=== PATIENT | female | born 1945 | race Caucasian/White ===

== ENCOUNTER 2024-09-04 09:25 | Outpatient (AMB) | payer BC, SELFPAY ==
--- NOTE | 2024-09-04 09:58 | PD.RESCLINIC ---
Vital Signs 09/04/24 09:59 Height 1.6 m Height Method Stated Weight 54.885 kg Weight Measurement Method Standing Scale BMI 21.4 BP 192/73 H Blood Pressure Source Automatic Cuff Blood Pressure Location Left Upper Arm Position Sitting Respiration 18 Pulse 66 Pulse Source Monitor Temp 97.8 F Temp Source Temporal Artery Scan Pulse Oximetry (%) 98 Oxygen Delivery Method Room Air Allergies/Meds Allergies & Medications Allergies NUTS Allergy (Unknown, Uncoded 09/08/24 14:35) Medication Reconciliation estradiol 1 mg tablet (Estrace) 1 mg PO QDAY #0 tabs 01/13/14 [History] alprazolam 0.25 mg tablet (Xanax) 0.25 mg PO QDAY PRN claustrophobia #10 tabs 09/04/24 [Rx Confirmed 09/08/24] carvedilol 6.25 mg tablet (Coreg) 6.25 mg PO BID #60 tabs 09/04/24 [Rx Confirmed 09/08/24] MA Intake Visit Data Collection New Patient or Established: New Patient (never been to [facility]) Seen by Clinical Staff ONLY (RN/MA): No Pain Present Currently: Yes Pain Location: Shoulder Pain scale:: 4 PCP or OBGYN visit in last 3 months: Yes Smoking Status Smoking Status: Never smoker Immunization / Flu Flu Vaccine in the Last 12 Months: No Flu Vaccine Exclusion Criteria: Refused by Patient Past Medical History Social History SMOKING STATUS: Smoking status: Never smoker Patient Portal Questionaires Social History Tobacco History Smoking Status: Never smoker Review of Systems Report any current symptoms Only answer those that you have currently: Past Medical History Past Medical History Have you ever been diagnosed with any of the following: History of Present Illness HPI Narrative Patient is a 71-year-old female with past medical history of hypertension is coming in for an evaluation of left shoulder pain with associated numbness tingling and possible finger discoloration. Patient has noticed over some time that she began to experience worsening shoulder pain with those associated symptoms mentioned above. She says that she was in [facility] recently and had a cardiac cath which was normal. The reason she had a cardiac cath was she was experiencing also chest pain that had occurred suddenly. She is a patient of Dr. Gomez who manages her blood pressure and had said that her arteries are good, however needed further workup for the arteries of her extremities. She did say that her blood pressure has been running high lately, it was measured 160 in the manager facility office. She says her blood pressure is usually 120 systolic. She confirms about a 5 pound weight loss over the past month. She does endorse some fatigue as well. She denies having any chest pain, palpitations or shortness of breath at this time. She denies any trauma to her left shoulder or neck. She denies any family history of rheumatological disease. She denies having any syncope. She also says that she was going to travel via plane to get chiropractic work. She is also requesting some medicine for some history of claustrophobia with traveling. No other complaints at this time. Review of Systems Review of Systems Narrative Review of Systems: Constitutional: No fever, chills, fatigue, weakness, weight loss HEENT: No eye pain, vision loss, ear pain, hearing loss, dysphagia, Cardiovascular: No chest pain, palpitations, edema, pain with walking Respiratory: No cough, shortness of breath, wheezing GI: No NVD, abdominal pain, constipation, blood in stool, loss of appetite, heartburn Extremities: No presence of pitting edema MSK: Positive right shoulder pain, no back pain, joint pain, joint swelling Neuro: No dizziness, numbness, positive weakness, no headaches, seizures, tremors Psych: No anxiety, depression Objective/Exam Narrative Physical exam: General: AAOx3, NAD, wearing glasses HEENT: Moist mucous membranes, conjunctiva clear, EOMI, PERRLA, Cardiovascular: S1, S2, radial pulses +2 bilat, RRR Pulmonary: CTAB bilat no cough, no wheezing GI: No tenderness to light or deep palpitation, no guarding, rigidity, rebound tenderness or distension Extremities: No presence of trace or pitting edema in lower extremities bilaterally, dorsalis pedis pulses +2 bilaterally, cap refill +2, possible some discoloration when lifting shoulder to flexed position, negative Michael test with left side, negative Wallenberg test, pulses seem to be equal Neuro: AAOx3, no focal motor or sensory deficits in the UE or LE bilat Psych: Good judgement, thought and behavior. Cooperative Assessment & Plan Diagnosis / Problem List (1) Left shoulder pain: Status: Acute Assessment & Plan: DDx: Thoracic outlet syndrome, subclavian steal syndrome, neurogenic claudication, vertebral artery insufficiency, arterial claudication Sees Dr. Gomez Blood pressure measured 195/95 in both R and L arm manually, less likely subclavian steal syndrome There was a concern for arterial claudication, however blood pressure seems to be normal in both arms, pulses seem to be equal There is a concern for neurogenic claudication, will need to further workup because patient has associated numbness and tingling There could also be a rheumatologic component, family history of rheumatologic disease has been denied however will still workup Patient denies having a history of anxiety Blood pressure does not seem to be controlled and patient is experiencing any time, will adjust blood pressure medicine Plan: Ultrasound arterial duplex of her upper extremities bilaterall MRI of the cervical spine SUNNY (2) Hypertension: Status: Acute Assessment & Plan: Sees Dr. Gomez Blood pressure measured 195/95 in both R and L arm manually Spoke with Dr. Hernadez says okay to start Coreg at this time Plan: Discontinue metoprolol Given Coreg 6.25 twice daily for metoprolol 50 mg XL equivalent Follow-up with Dr. Gomez ER precautions given if patient becomes symptomatic or blood pressure worsens (3) Claustrophobia: Status: Acute Assessment & Plan: Patient says she wants to travel for chiropractic work It was informed to the patient for patient to avoid getting any manipulations including high velocity techniques in the setting of possible neurogenic claudication She was given permission to continue with soft tissue work but highly discouraged patient to do any cervical manipulations or high velocity techniques until further workup Informed the patient to try Xanax before traveling to see how her body reacts Patient also has claustrophobia with MRI and was also informed to take that medicine before getting imaging done Patient did says she is sensitive to anesthesia and other medicines Plan: Dispensed 10 tablets of Xanax 0.25 mg, max dose 0.25 mg 1 day Orders: Orders MR cervical spine wo con 09/04/24 M48.062 - Spinal stenosis, lumbar region with neurogenic claudication SUNNY IFA Screen w/refl, IFA* 09/04/24 M48.062 - Spinal stenosis, lumbar region with neurogenic claudication US arterial duplex UE BI 09/04/24 M48.00 - Spinal stenosis, site unspecified Additional Assessment Internal Medicine Attending Note: Patient examined and interviewed. Case discussed with and agree with note and management plan of Resident Physician as per Resident's Note above. Issues of concern for present visit are as follows: New patient to clinic. Complaint of left shoulder pain with numbness, tingling, finger discoloration in left upper extremity. Pain in the shoulder is more posterior, in the region of the lower portion of the trapezius underneath the scapula in the region of the rhomboid muscles. Radial pulses symmetric bilaterally. Michael's test is negative bilaterally. Left fourth and fifth digits are cooler than others. No anisa radicular pain. Denies chest pain. Blood pressure has been running higher. No anisa muscle wasting noted comparing left and right upper extremities. No edema in left upper extremity. No history of trauma or prior issue with rib or clavicle on left side. Question if symptoms are circulatory versus neurologic in nature. Pain in the shoulder suggest a possible C7-C8 source which would also correlate with finger symptoms of numbness and tingling. Symmetric radial pulses would suggest that there is not compression or compromise of arterial flow. We will check an arterial duplex of the upper extremities bilaterally to compare both. We will check an MRI of the cervical spine. We will do a limited rheumatologic workup (consider Raynaud's). Change antihypertensive to carvedilol 6.25 twice daily and titrate for better blood pressure control. Patient planning to travel soon, reports anxiety with flights. We will give a very low-dose of Xanax to be used as needed. Advised patient to try it at home in a controlled setting first before taking it prior to the flight. Patient may also use this 1 hour in advance of MRI for claustrophobia. Mike Hughes MD Advanced Care Planning Advance care planning discussed with:: patient Physician Billing New Patient New Patient: E/M Level 4-CPT 55187 Office Procedures [facility] Level of Care Nursing/Assessment Patient Status: Established Patient Nursing Assessment/Reassessment: Medication Reconciliation, Update PMH in EMR and Vital Signs Coordination of Care: Complex Care/Chronic Disease 5 or more, Consent,records obtained, informed consent, Education Simp Pt/Fam, Lab and Imaging orders and Staff clarify orders Established Patient Charge Established Patient Point Assignment: 110 Established Patient Point Charge: EP Level 3 (80-115)
[2024-09-04 09:59] VITALS: BP 192/73; PULSE 66; RESP 18; TEMP 36.6; O2SAT 98; BMI 21.4
== END 2024-09-04 11:27 | disposition home or self-care (01) ==
LOC: HODAHC 09:25
PROVIDERS: PCP Nurse Practitioner Family; Referring Provider Nurse Practitioner Family
DX: M25.512 Pain in left shoulder (principal); R20.0 Anesthesia of skin; R20.2 Paresthesia of skin; I10 Essential (primary) hypertension; F40.240 Claustrophobia
CPT/HCPCS: 99213; G0463

== ENCOUNTER 2024-11-06 10:32 | Outpatient (AMB) | payer BC, SELFPAY ==
[2024-11-06 10:53] VITALS: BP 188/81; PULSE 79; RESP 16; TEMP 36.8; O2SAT 97; BMI 21.0
--- NOTE | 2024-11-06 10:53 | ACNOTE_ITS ---
Vital Signs 11/06/24 10:53 Height 1.6 m Height Method Stated Weight 53.977 kg Weight Measurement Method Standing Scale BMI 21.0 BP 188/81 H Blood Pressure Source Automatic Cuff Blood Pressure Location Left Upper Arm Position Sitting Respiration 16 Pulse 79 Pulse Source Monitor Temp 98.2 F Temp Source Temporal Artery Scan Pulse Oximetry (%) 97 Oxygen Delivery Method Room Air Allergies/Meds Allergies & Medications Allergies NUTS Allergy (Unknown, Uncoded 11/06/24 10:54) Medication Reconciliation estradiol 1 mg tablet (Estrace) 1 mg PO QDAY #0 tabs 01/13/14 [History Confirmed 11/06/24] alprazolam 0.25 mg tablet (Xanax) 0.25 mg PO QDAY PRN claustrophobia #10 tabs 09/04/24 [Rx Confirmed 11/06/24] carvedilol 6.25 mg tablet (Coreg) 6.25 mg PO BID #60 tabs 09/04/24 [Rx Confirmed 11/06/24] MA Intake Visit Data Collection New Patient or Established: Established Patient (seen at [facility] within 3 years) Seen by Clinical Staff ONLY (RN/MA): Yes Pain Present Currently: No Pain scale:: 0 Pain Scale Used: Chery-C[place]/Numerical Farmer And Grazier Required: No PCP or OBGYN visit in last 3 months: No Hx Now: No Do You Feel Safe at Home: Yes Authorities Contacted: N/A Smoking Status Smoking Status: Never smoker Immunization / Flu Flu Vaccine in the Last 12 Months: No Flu Vaccine Exclusion Criteria: No Exclusion Criteria Past Medical History Social History SMOKING STATUS: Smoking status: Never smoker Patient Portal Questionaires Social History Tobacco History Smoking Status: Never smoker Domestic Abuse History Do You Feel Safe at Home: Yes Review of Systems Report any current symptoms Only answer those that you have currently: Past Medical History Past Medical History Have you ever been diagnosed with any of the following: Assessment & Plan Additional Assessment Attending Note: Patient left prior to being seen by physician as she stated that she had a family emergency. Mike Hughes MD Advanced Care Planning Advance care planning discussed with:: other (none as patient left prior to being seen by physician due to stated family emergency) Office Procedures [facility] Level of Care Nursing/Assessment Patient Status: Established Patient Nursing Assessment/Reassessment: Medication Reconciliation, Update PMH in EMR and Vital Signs Coordination of Care: Complex Care and Chronic Disease 1-5, Consent,records obta ined, informed consent and Staff clarify orders Established Patient Charge Established Patient Point Assignment: 70 Established Patient Point Charge: EP Level 2 (40-75)
== END 2024-11-06 11:16 | disposition home or self-care (01) ==
PROVIDERS: PCP Student in an Organized Health Care Education/Training Program; Referring Provider Student in an Organized Health Care Education/Training Program; Supervising Provider Internal Medicine; Visit Provider Student in an Organized Health Care Education/Training Program
DX: Z53.21 Procedure and treatment not carried out due to patient leaving prior to being seen by health care provider (principal)
CPT/HCPCS: 99212; 99213; G0463

== ENCOUNTER 2024-12-05 13:56 | Outpatient (AMB) | payer BC, SELFPAY ==
[2024-12-05 14:13] VITALS: BP 193/79; PULSE 78; RESP 18; TEMP 36.8; O2SAT 97; BMI 21.2
--- NOTE | 2024-12-05 14:13 | ACNOTE_ITS ---
Vital Signs 12/05/24 14:13 Height 1.6 m Height Method Stated Weight 54.488 kg Weight Measurement Method Standing Scale BMI 21.2 BP 193/79 H Blood Pressure Source Automatic Cuff Blood Pressure Location Right Upper Arm Position Sitting Respiration 18 Pulse 78 Pulse Source Monitor Temp 98.2 F Temp Source Temporal Artery Scan Pulse Oximetry (%) 97 Oxygen Delivery Method Room Air Allergies/Meds Allergies & Medications Allergies NUTS Allergy (Unknown, Uncoded 12/05/24 14:14) Medication Reconciliation estradiol 1 mg tablet (Estrace) 1 mg PO QDAY #0 tabs 01/13/14 [History Confirmed 12/05/24] alprazolam 0.25 mg tablet (Xanax) 0.25 mg PO QDAY PRN claustrophobia #10 tabs 09/04/24 [Rx Confirmed 12/05/24] carvedilol 6.25 mg tablet (Coreg) 6.25 mg PO BID #60 tabs 09/04/24 [Rx Confirmed 12/05/24] gabapentin 100 mg capsule 100 mg PO BID pain #14 caps 12/05/24 [Rx] hydrocortisone 1 % topical cream 1 applic topical QID PRN itching #28.4 grams 12/05/24 [Rx] valacyclovir 1 gram tablet 1,000 mg PO Q8H shingles 7 days #21 tabs 12/05/24 [Rx] MA Intake Visit Data Collection New Patient or Established: Established Patient (seen at [facility] within 3 years) Seen by Clinical Staff ONLY (RN/MA): No Pain Present Currently: No Pain scale:: 0 Pain Scale Used: Chery-[place]/Numerical Retail Pharmacy Technician Required: No PCP or OBGYN visit in last 3 months: No Hx Now: No Do You Feel Safe at Home: Yes Authorities Contacted: N/A Smoking Status Smoking Status: Never smoker Immunization / Flu Flu Vaccine in the Last 12 Months: No Flu Vaccine Exclusion Criteria: No Exclusion Criteria Past Medical History Social History SMOKING STATUS: Smoking status: Never smoker Patient Portal Questionaires Social History Tobacco History Smoking Status: Never smoker Domestic Abuse History Do You Feel Safe at Home: Yes Review of Systems Report any current symptoms Only answer those that you have currently: Past Medical History Past Medical History Have you ever been diagnosed with any of the following: History of Present Illness HPI Narrative Patient is a 71-year-old female with past medical history of hypertension is coming in for an evaluation of left shoulder pain with associated numbness tingling and possible finger discoloration. Patient has noticed over some time that she began to experience worsening shoulder pain with those associated symptoms mentioned above. She says that she was in [facility] recently and had a cardiac cath which was normal. The reason she had a cardiac cath was she was experiencing also chest pain that had occurred suddenly. She is a patient of Dr. Gomez who manages her blood pressure and had said that her arteries are good, however needed further workup for the arteries of her extremities. She did say that her blood pressure has been running high lately, it was measured 160 in the [employer] administrator office. She says her blood pressure is usually 120 systolic. She confirms about a 5 pound weight loss over the past month. She does endorse some fatigue as well. She denies having any chest pain, palpitations or shortness of breath at this time. She denies any trauma to her left shoulder or neck. She denies any family history of rheumatological disease. She denies having any syncope. She also says that she was going to travel via plane to get chiropractic work. She is also requesting some medicine for some history of claustrophobia with traveling. No other complaints at this time. 12/05 : Patient presented for follow-up visit. She continues to have loss of appetite, > 8 pound weight loss in 2 months, night sweats and mild discomfort due to the left thyroid gland nodule. Patient also complains of developing a vesicular rash behind her ear 1 week ago. She has had shingles in the past on the right side of her abdomen which was treated with antiviral therapy. She refuses Shingrix vaccination at this time. Daughter was present at bedside, and showed a picture of the vesicles from 1 week ago which have now resolved to a dry erythematous and excoriated lesion behind the ear. Patient endorses severe pain 9/10 in her mastoid region and left temporal region of the head. As per daughter at bedside, patient lives alone and has not been maintaining her lawn) less around the house due to significant fatigue. As per daughter patient has been coughing yellow-green mucus intermittently for the last 8 weeks, she has also noted loss of energy and appetite, with some depressive symptoms over the last 2-3 months. Blood pressure was noted to be 193 systolic, but patient does have notable history of whitecoat hypertension. She was given lab work from for CBC, CMP, lipid panel, TSH and free T4, CEA and thyroglobulin. Thyroid ultrasound and CT chest ordered for further evaluation. Will follow-up with iodine scan and oncology referral as needed. Review of Systems Review of Systems Narrative Review of Systems: GENERAL: Denies fevers/chills, endorses night time diaphoresis. Weight loss >8lbs in 09/17 HEENT: Denies headache or visual/hearing changes. Denies nasal discharge. NEURO: Denies unusual weakness or difficulty speaking. CARDIO: Denies chest pain, palpitations. PULM: Denies SOB, cough, wheezing. GI: Denies abdominal pain, no N/V, no C/D. Reports having BMs URO: Denies burning/itching/pain/urinary changes. 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 MSK/EXT/SKIN: vesicular rash behind her ear, severe pain 9/10 in her mastoid re gion and left temporal region of the head. PSYCH: Cooperative, pleasant mood & affect. The rest of the review of systems is otherwise negative. Objective/Exam Narrative Physical exam: Constitutional Alert, oriented x3 and comfortable HEENT Vision grossly intact. Patent nares. 1.5-2 cm left thyroid nodule. Trachea midline. Diffuse tenderness in the right temporal head region. Respiratory Chest normal on inspection and diffuse congestion on auscultation. Cardiovascular S1 and S2 audible, RRR. No murmurs or carotid bruit. No gross JVD. Abdominal Soft and non tender to palpation in all quadrants. BS + Genitourinary No bladder tenderness, no flank pain. Normal to palpation. Musculoskeletal Extremities tone within normal limits. No LE edema. Neurological CN II - XII grossly intact. Extremity motor and sensation grossly intact. Skin Dry, crusted erythematous lesion behind the right ear lobe. Previously vesicular, excruciatingly tender. Psychiatric Patient has a good affect, is cooperative. Assessment & Plan Diagnosis / Problem List (1) Shingles: Status: Acute Qualifiers: Herpes zoster complications: without complications Qualified Code(s): B02.9 - Zoster without complications Assessment & Plan: - Complains of developing a vesicular rash behind her ear 1 week ago. - She has had shingles in the past on the right side of her abdomen which was treated with antiviral therapy. - She refuses Shingrix vaccination at this time. - Daughter was present at bedside, and showed a picture of the vesicles from 1 week ago which have now resolved to a dry erythematous and excoriated lesion behind the ear. - Patient endorses severe pain 9/10 in her mastoid region and left temporal region of the head. Plan: - Ordered CBC, CMP, lipid panel, TSH and free T4, CEA and thyroglobulin. - Valacyclovir 1g TID x 7d - Gabapentin 100mg TID PRN for pain - Hydrocortisone ointment (2) Thyroid nodule: Status: Acute Assessment & Plan: - Continues to have loss of appetite, > 8 pound weight loss in 2 months, night sweats and mild discomfort due to the left thyroid gland nodule. - >8 pound weight loss in 2 months, night sweats and mild discomfort due to the left thyroid gland nodule. Plan: - lab work from for CBC, CMP, lipid panel, TSH and free T4, CEA and thyroglobulin. - Thyroid ultrasound and CT chest ordered for further evaluation. - Will follow-up with iodine scan and oncology referral as needed. (3) White coat syndrome with hypertension: Status: Acute Assessment & Plan: Blood pressure was noted to be 193 systolic, but patient does have notable history of whitecoat hypertension. Plan: - Asked to keep a BP record at home - Will change medication once Renal Function reviewed on lab work (4) Hypercholesteremia: Status: Acute Assessment & Plan: Hx of high cholesterol Plan: - Lipid panel ordered for further eval Plan - Follow-up scheduled in 2 weeks from now. - Requested to return the blood work: CBC, CMP, lipid panel, TSH and free T4, CEA and thyroglobulin - Requested imaging studies:Thyroid ultrasound and CT chest w/o con Orders: Orders CT chest wo con 2 Weeks US thyroid 2 Weeks E04.1 - Nontoxic single thyroid nodule Thyroglobulin Panel* 2 Weeks E04.1 - Nontoxic single thyroid nodule CBC 2 Weeks I10 - Essential (primary) hypertension Comprehensive Metabolic Panel 2 Weeks E04.1 - Nontoxic single thyroid nodule Thyroid Stimulating Hormone 2 Weeks E04.1 - Nontoxic single thyroid nodule Carcinoembryonic Antigen 2 Weeks E04.1 - Nontoxic single thyroid nodule Free T4 (Free Thyroxine) 2 Weeks Lipid Panel 2 Weeks E78.00 - Pure hypercholesterolemia, unspecified Additional Assessment Internal Medicine Attending Note: Patient examined and interviewed. Case discussed with and agree with note and management plan of Resident Physician as per Resident's Note above. Issues of concern for present visit are as follows: Follow-up visit. Rash on posterior right ear as well as pain over scalp consistent with recurrence of varicella-zoster. Ear canal is clear. Symptoms for greater than 48 hours, but we will cover with valacyclovir. Workup in process for thyroid nodule. Blood pressure elevated in office, needs outpatient readings. Await labs, follow-up in 2 weeks. Mike Hughes MD Advanced Care Planning Advance care planning discussed with:: patient and child Physician Billing Established Patient Established Patient: E/M Level 4-CPT 18401 Office Procedures [facility] Level of Care Nursing/Assessment Patient Status: Established Patient Nursing Assessment/Reassessment: Medication Reconciliation, Update PMH in EMR and Vital Signs Coordination of Care: Complex Care and Chronic Disease 1-5, Consent,records obtained, informed consent, Education Simp Pt/Fam and Staff clarify orders Established Patient Charge Established Patient Point Assignment: 85 Established Patient Point Charge: EP Level 3 (80-115)
== END 2024-12-05 15:21 | disposition home or self-care (01) ==
LOC: HODAHC 13:56
PROVIDERS: Supervising Provider Internal Medicine; Visit Provider Student in an Organized Health Care Education/Training Program
DX: B02.9 Zoster without complications (principal); E04.1 Nontoxic single thyroid nodule; I10 Essential (primary) hypertension; E78.00 Pure hypercholesterolemia, unspecified; R63.0 Anorexia; Z68.21 Body mass index [BMI] 21.0-21.9, adult
CPT/HCPCS: 99213; G0463

== ENCOUNTER → 2024-12-12 | Outpatient (CLI) | payer BC, SELFPAY ==
[2024-12-12 10:12] LABS: Carcinoembryonic Antigen 4.9 ng/mL (0.0-5.0)
[2024-12-12 10:19] LABS: Cardiac Risk Estimate 5.2 RATIO (3.7-5.6); Cholesterol 309 mg/dL (132-200); HDL Cholesterol 59 mg/dL (40-60); LDL Cholesterol,Calculated 218 mg/dL (0-130); Triglycerides 160 mg/dL (30-150)
[2024-12-14 15:34] LABS: Thyroglobulin Antibodies <1 IU/mL (< OR = 1)
[2024-12-15 07:14] LABS: Thyroglobulin 32.9 ng/mL
== END | disposition home or self-care (01) ==
PROVIDERS: PCP Student in an Organized Health Care Education/Training Program; Referring Provider Student in an Organized Health Care Education/Training Program; Visit Provider Student in an Organized Health Care Education/Training Program
DX: E04.1 Nontoxic single thyroid nodule (principal); E78.00 Pure hypercholesterolemia, unspecified
CPT/HCPCS: 36415; 80061; 82378; 84432; 86800

== ENCOUNTER 2024-12-19 13:30 | Outpatient (AMB) | payer BC, SELFPAY ==
[2024-12-19 13:53] VITALS: BP 182/78; PULSE 85; RESP 18; TEMP 36.6; O2SAT 98; BMI 20.7
--- NOTE | 2024-12-19 13:53 | PD.RESCLINIC ---
Vital Signs 12/19/24 13:53 Height 1.6 m Height Method Stated Weight 53.127 kg Weight Measurement Method Standing Scale BMI 20.7 BP 182/78 H Blood Pressure Source Automatic Cuff Blood Pressure Location Right Upper Arm Position Sitting Respiration 18 Pulse 85 Pulse Source Monitor Temp 97.8 F Temp Source Temporal Artery Scan Pulse Oximetry (%) 98 Oxygen Delivery Method Room Air Allergies/Meds Allergies & Medications Allergies NUTS Allergy (Unknown, Uncoded 12/24/24 08:20) Medication Reconciliation estradiol 1 mg tablet (Estrace) 1 mg PO QDAY #0 tabs 01/13/14 [History Confirmed 12/24/24] alprazolam 0.25 mg tablet (Xanax) 0.25 mg PO QDAY PRN claustrophobia #10 tabs 09/04/24 [Rx Confirmed 12/24/24] carvedilol 6.25 mg tablet (Coreg) 6.25 mg PO BID #60 tabs 09/04/24 [Rx Confirmed 12/24/24] gabapentin 100 mg capsule 100 mg PO BID pain #14 caps 12/05/24 [Rx Confirmed 12/24/24] hydrocortisone 1 % topical cream 1 applic topical QID PRN itching #28.4 grams 12/05/24 [Rx Confirmed 12/24/24] diclofenac sodium 1 % topical gel (Arthritis Pain (diclofenac)) 2 g topical QID #50 grams 12/19/24 [Rx Confirmed 12/24/24] rosuvastatin 20 mg tablet 20 mg PO QDAY 1 month #30 tabs 12/19/24 [Rx Confirmed 12/24/24] valacyclovir 1 gram tablet 1,000 mg PO BID #30 tabs 12/19/24 [Rx Confirmed 12/24/24] MA Intake Visit Data Collection New Patient or Established: Established Patient (seen at [facility] within 3 years) Seen by Clinical Staff ONLY (RN/MA): No Pain Present Currently: No Pain scale:: 0 Pain Scale Used: CheryTammi/Numerical Office Workforce Planner Required: No PCP or OBGYN visit in last 3 months: Yes Hx Now: No Do You Feel Safe at Home: Yes Authorities Contacted: N/A Smoking Status Smoking Status: Never smoker Immunization / Flu Flu Vaccine in the Last 12 Months: No Flu Vaccine Exclusion Criteria: Refused by Patient Past Medical History Social History SMOKING STATUS: Smoking status: Never smoker Patient Portal Questionaires Social History Tobacco History Smoking Status: Never smoker Domestic Abuse History Do You Feel Safe at Home: Yes Review of Systems Report any current symptoms Only answer those that you have currently: Past Medical History Past Medical History Have you ever been diagnosed with any of the following: History of Present Illness HPI Narrative Patient is a 71-year-old female with past medical history of hypertension is coming in for an evaluation of left shoulder pain with associated numbness tingling and possible finger discoloration. Patient has noticed over some time that she began to experience worsening shoulder pain with those associated symptoms mentioned above. She says that she was in [facility] recently and had a cardiac cath which was normal. The reason she had a cardiac cath was she was experiencing also chest pain that had occurred suddenly. She is a patient of Dr. Gomez who manages her blood pressure and had said that her arteries are good, however needed further workup for the arteries of her extremities. She did say that her blood pressure has been running high lately, it was measured 160 in the nutrition faculty member office. She says her blood pressure is usually 120 systolic. She confirms about a 5 pound weight loss over the past month. She does endorse some fatigue as well. She denies having any chest pain, palpitations or shortness of breath at this time. She denies any trauma to her left shoulder or neck. She denies any family history of rheumatological disease. She denies having any syncope. She also says that she was going to travel via plane to get chiropractic work. She is also requesting some medicine for some history of claustrophobia with traveling. No other complaints at this time. 12/05/2024 : Patient presented for follow-up visit. She continues to have loss of appetite, > 8 pound weight loss in 2 months, night sweats and mild discomfort due to the left thyroid gland nodule. Patient also complains of developing a vesicular rash behind her ear 1 week ago. She has had shingles in the past on the right side of her abdomen which was treated with antiviral therapy. She refuses Shingrix vaccination at this time. Daughter was present at bedside, and showed a picture of the vesicles from 1 week ago which have now resolved to a dry erythematous and excoriated lesion behind the ear. Patient endorses severe pain 9/10 in her mastoid region and left temporal region of the head. As per daughter at bedside, patient lives alone and has not been maintaining her lawn) less around the house due to significant fatigue. As per daughter patient has been coughing yellow-green mucus intermittently for the last 8 weeks, she has also noted loss of energy and appetite, with some depressive symptoms over the last 2-3 months. Blood pressure was noted to be 193 systolic, but patient does have notable history of whitecoat hypertension. She was given lab work from for CBC, CMP, lipid panel, TSH and free T4, CEA and thyroglobulin. Thyroid ultrasound and CT chest ordered for further evaluation. Will follow-up with iodine scan and oncology referral as needed. 12/19/2024 : Patient presented for follow up. On labs elevated cholesterol noted, will start patient on Rosuvastatin 20mg HS. Other lab findings fairly within normal limits. Patient continues to have elevated blood pressure in clinic, endorses a 2 whitecoat hypertension. Patient was unable to get CBC on her last lab work, will request a new sample for next visit in 2 weeks. She is scheduled for a thyroid ultrasound in the next week, and will call make an appointment for CT chest. She did request faxed already. TSH and free T4 within normal limits, pending ultrasound results for cold nodule workup. Counseled on possible need for radioactive uptake scan. She also complains of new right-sided chest wall pain, likely due to sleeping with improper posture. Will order diclofenac ointment for the same. Patient also requested extra valacyclovir tablets for recurrence of shingles. Next follow-up appointment in 2 weeks on January 02. Review of Systems Review of Systems Narrative Review of Systems: GENERAL: Denies fevers/chills, diaphoresis. HEENT: Denies headache or visual/hearing changes. Denies nasal discharge. NEURO: Denies unusual weakness or difficulty speaking. CARDIO: Denies chest pain, palpitations. PULM: Denies SOB, cough, wheezing. GI: Denies abdominal pain, no N/V, no C/D. Reports having BMs URO: Denies burning/itching/pain/urinary changes. 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 MSK/EXT/SKIN: Denies skeletal/muscle pain, changes in upper or lower extremities, itchiness, superficial skin chnages. PSYCH: Cooperative, pleasant mood & affect. The rest of the review of systems is otherwise negative. Objective/Exam Narrative Physical exam: Constitutional Alert, oriented x3 and comfortable HEENT Vision grossly intact. Patent nares. Trachea midline. Respiratory Chest normal on inspection and clear to auscultation bilaterally. Cardiovascular S1 and S2 audible, RRR. No murmurs or carotid bruit. No gross JVD. RT sided chest wall pain. Abdominal Soft and non tender to palpation in all quadrants. BS + Genitourinary No bladder tenderness, no flank pain. Normal to palpation. Musculoskeletal Extremities tone within normal limits. No LE edema. Neurological CN II - XII grossly intact. Extremity motor and sensation grossly intact. Skin Warm, dry and intact. No apparent lesions. Psychiatric Patient has a good affect, is cooperative. Assessment & Plan Diagnosis / Problem List (1) Thyroid nodule: Status: Acute Assessment & Plan: - Continues to have loss of appetite, > 8 pound weight loss in 2 months, night sweats and mild discomfort due to the left thyroid gland nodule. - >8 pound weight loss in 2 months, night sweats and mild discomfort due to the left thyroid gland nodule. 12/19 : TSH, free T4, CEA and thyroglobulin levels within normal limits Plan: - Ordered new request for CBC - Pending thyroid ultrasound and CT chest ordered for further evaluation. - Will follow-up with iodine scan and oncology referral as needed. (2) Hypercholesteremia: Status: Acute Assessment & Plan: Hx of high cholesterol 12/19 ; Lipid panel shows hypercholesterolemia Plan: Started on rosuvastatin 20 mg at bedtime (3) White coat syndrome with hypertension: Status: Acute Assessment & Plan: Blood pressure was noted to be 193 systolic, but patient does have notable history of whitecoat hypertension. 12/19 : Blood pressure on this visit 182/78 Home record within normal limits Plan: - Encouraged to continue keeping blood pressure record at home - Will trauma counsellor next visit on CORA/ARB addition for adequate control (4) Right-sided chest wall pain: Status: Acute Assessment & Plan: She also complains of new right-sided chest wall pain, likely due to sleeping with improper posture. Plan: - order diclofenac ointment - Take gabapentin which is prescribed at for shingles on last visit, to be taken in addition as needed for severe pain Plan - Follow-up scheduled in 2 weeks from now. - Requested to return the blood work: CBC - Requested imaging studies:Thyroid ultrasound and CT chest w/o con Orders: Orders CBC 2 Weeks I10 - Essential (primary) hypertension Additional Assessment Mike Hughes MD Advanced Care Planning Advance care planning discussed with:: patient and child Office Procedures [facility] Level of Care Nursing/Assessment Patient Status: Established Patient Nursing Assessment/Reassessment: Medication Reconciliation, Update PMH in EMR and Vital Signs Coordination of Care: Complex Care and Chronic Disease 1-5, Consent,records obtained, informed consent, Education Simp Pt/Fam, Results/Orders obtained and Staff clarify orders Established Patient Charge Established Patient Point Assignment: 90 Established Patient Point Charge: EP Level 3 (80-115)
== END 2024-12-19 14:52 | disposition home or self-care (01) ==
LOC: HODAHC 13:30
PROVIDERS: Supervising Provider Student in an Organized Health Care Education/Training Program; Visit Provider Student in an Organized Health Care Education/Training Program
DX: E78.00 Pure hypercholesterolemia, unspecified (principal); I10 Essential (primary) hypertension; R07.89 Other chest pain; E04.1 Nontoxic single thyroid nodule
CPT/HCPCS: 99213; G0463

== ENCOUNTER → 2024-12-24 | Outpatient (CLI) | payer BC, SELFPAY ==
--- NOTE | 2024-12-24 15:00 | XR_ITS ---
Examination: Thyroid sonography complete TECHNIQUE: Grayscale sonographic images thyroid lobes Exam date and time: December 24, 2024 1515 hours Diagnosis nontoxic single thyroid nodule, patient states lump on the left side of the neck note is beginning 3 weeks ago. FINDINGS: Right thyroid 4.1 cm Midpole nodule 7 x 8 mm midpole cyst 5 x 4 mm Lower pole nodule 19 x 12 mm Left thyroid 5.2 cm Upper pole cyst with internal echoes 21 x 18 mm Midpole nodule 13 x 9 mm Midpole cyst 9 x 6 mm Lower pole nodule 4 x 5 mm Multiple bilateral smaller nodules IMPRESSION: Multiple thyroid nodules as above, consider ultrasound-guided fine-needle aspiration of the nodules in the lower pole right thyroid and mid pole left thyroid
== END | disposition home or self-care (01) ==
PROVIDERS: Referring Provider Student in an Organized Health Care Education/Training Program; Visit Provider Student in an Organized Health Care Education/Training Program
DX: E04.2 Nontoxic multinodular goiter (principal)
CPT/HCPCS: 76536

== ENCOUNTER 2025-01-02 15:00 | Outpatient (AMB) | payer BC, SELFPAY ==
--- NOTE | 2025-01-02 15:33 | ACNOTE_ITS ---
Vital Signs 01/02/25 15:34 Height 1.6 m Height Method Stated Weight 52.673 kg Weight Measurement Method Standing Scale BMI 20.5 BP 166/74 H Blood Pressure Source Automatic Cuff Blood Pressure Location Right Upper Arm Position Sitting Respiration 17 Pulse 91 Pulse Source Monitor Temp 98.0 F Temp Source Temporal Artery Scan Pulse Oximetry (%) 98 Oxygen Delivery Method Room Air Allergies/Meds Allergies & Medications Allergies NUTS Allergy (Unknown, Uncoded 01/02/25 15:35) Medication Reconciliation estradiol 1 mg tablet (Estrace) 1 mg PO QDAY #0 tabs 01/13/14 [History Confirmed 01/02/25] alprazolam 0.25 mg tablet (Xanax) 0.25 mg PO QDAY PRN claustrophobia #10 tabs 09/04/24 [Rx Confirmed 01/02/25] carvedilol 6.25 mg tablet (Coreg) 6.25 mg PO BID #60 tabs 09/04/24 [Rx Confirmed 01/02/25] gabapentin 100 mg capsule 100 mg PO BID pain #14 caps 12/05/24 [Rx Confirmed 01/02/25] hydrocortisone 1 % topical cream 1 applic topical QID PRN itching #28.4 grams 12/05/24 [Rx Confirmed 01/02/25] diclofenac sodium 1 % topical gel (Arthritis Pain (diclofenac)) 2 g topical QID #50 grams 12/19/24 [Rx Confirmed 01/02/25] rosuvastatin 20 mg tablet 20 mg PO QDAY 1 month #30 tabs 12/19/24 [Rx Confirmed 01/02/25] valacyclovir 1 gram tablet 1,000 mg PO BID #30 tabs 12/19/24 [Rx Confirmed 01/02/25] MA Intake Visit Data Collection New Patient or Established: Established Patient (seen at [facility] within 3 years) Seen by Clinical Staff ONLY (RN/MA): No Pain Present Currently: Yes Pain Location: Throat Pain scale:: 7 Pain Scale Used: CheryTammi/Numerical Digital Product Specialist Required: No PCP or OBGYN visit in last 3 months: Yes Date of Last PCP or OBGYN visit: 12/19/24 Do You Feel Safe at Home: Yes Authorities Contacted: N/A Smoking Status Smoking Status: Never smoker Immunization / Flu Flu Vaccine in the Last 12 Months: Yes Flu Vaccine Exclusion Criteria: Already Received Past Medical History Social History SMOKING STATUS: Smoking status: Never smoker Patient Portal Questionaires PHQ-9 PHQ-2 Over the last 2 weeks, how often have you been bothered by any of the following problems? 1. Little interest or pleasure in doing things: not at all 2. Feeling down, depressed, or hopeless: not at all Total score: 0 PHQ-9 3. Trouble falling or staying asleep, or sleeping too much: Not at all 4. Feeling tired or having little energy: Not at all 5. Poor appetite or overeating: Not at all 6. Feeling bad about yourself - or that you are a failure or have let yourself or your family down: Not at all 7. Trouble concentrating on things, such as reading the newspaper or watching television: Not at all 8. Moving or speaking so slowly that other people could have noticed? - Or the opposite - being so fidgety or restless that you have been moving around a lot more than usual: not at all 9. Thoughts that you would be better off or of hurting yourself in some way: Not at all Total score: 0 If you checked off any problems, how difficult have these problems made it for you to do your work, take care of things at home, or get along with other people?: not difficult at all Source: Developed by Drs. Johnny Yee, Pearl Herrmann, Houston Mao and colleagues, with an educational tyler from [employer]. Depression screen completed yes Social History Tobacco History Smoking Status: Never smoker Domestic Abuse History Do You Feel Safe at Home: Yes Review of Systems Report any current symptoms Only answer those that you have currently: Past Medical History Past Medical History Have you ever been diagnosed with any of the following: History of Present Illness HPI Narrative Patient is a 71-year-old female with past medical history of hypertension is coming in for an evaluation of left shoulder pain with associated numbness tingling and possible finger discoloration. Patient has noticed over some time that she began to experience worsening shoulder pain with those associated symptoms mentioned above. She says that she was in [facility] recently and had a cardiac cath which was normal. The reason she had a cardiac cath was she was experiencing also chest pain that had occurred suddenly. She is a patient of Dr. Gomez who manages her blood pressure and had said that her arteries are good, however needed further workup for the arteries of her extremities. She did say that her blood pressure has been running high lately, it was measured 160 in the associate store director office. She says her blood pressure is usually 120 systolic. She confirms about a 5 pound weight loss over the past month. She does endorse some fatigue as well. She denies having any chest pain, palpitations or shortness of breath at this time. She denies any trauma to her left shoulder or neck. She denies any family history of rheumatological disease. She denies having any syncope. She also says that she was going to travel via plane to get chiropractic work. She is also requesting some medicine for some history of claustrophobia with traveling. No other complaints at this time. 12/05/2024 : Patient presented for follow-up visit. She continues to have loss of appetite, > 8 pound weight loss in 2 months, night sweats and mild discomfort due to the left thyroid gland nodule. Patient also complains of developing a vesicular rash behind her ear 1 week ago. She has had shingles in the past on the right side of her abdomen which was treated with antiviral therapy. She refuses Shingrix vaccination at this time. Daughter was present at bedside, and showed a picture of the vesicles from 1 week ago which have now resolved to a dry erythematous and excoriated lesion behind the ear. Patient endorses severe pain 9/10 in her mastoid region and left temporal region of the head. As per daughter at bedside, patient lives alone and has not been maintaining her lawn) less around the house due to significant fatigue. As per daughter patient has been coughing yellow-green mucus intermittently for the last 8 weeks, she has also noted loss of energy and appetite, with some depressive symptoms over the last 2-3 months. Blood pressure was noted to be 193 systolic, but patient does have notable history of whitecoat hypertension. She was given lab work from for CBC, CMP, lipid panel, TSH and free T4, CEA and thyroglobulin. Thyroid ultrasound and CT chest ordered for further evaluation. Will follow-up with iodine scan and oncology referral as needed. 12/19/2024 : Patient presented for follow up. On labs elevated cholesterol noted, will start patient on Rosuvastatin 20mg HS. Other lab findings fairly within normal limits. Patient continues to have elevated blood pressure in clinic, endorses a 2 whitecoat hypertension. Patient was unable to get CBC on her last lab work, will request a new sample for next visit in 2 weeks. She is scheduled for a thyroid ultrasound in the next week, and will call make an appointment for CT chest. She did request faxed already. TSH and free T4 within normal limits, pending ultrasound results for cold nodule workup. Counseled on possible need for radioactive uptake scan. She also complains of new right-sided chest wall pain, likely due to sleeping with improper posture. Will order diclofenac ointment for the same. Patient also requested extra valacyclovir tablets for recurrence of shingles. Next follow-up appointment in 2 weeks on January 02. 01/02/2025 : Seen in [facility] for thyroid ultrasound follow up, US remarkable for multiple nodules Left lobe largest nodule 5.2 cm,with smaller 0.4-1.3 cm nodules. Right thyroid lobe largest 4.1 cm, with smaller 0.5-1.9 cm nodules. Previously labs showed TSH and free T4 within normal limits. Referral provided for records management associate Dr. Reina in [place]. Patient advised to make an appointment at the earliest, will fax results if unable to access online. Patient may need FNA or radioactive uptake scan to further evaluate bilateral nodules and recent weight loss. Review of Systems Review of Systems Narrative Review of Systems: GENERAL: Denies fevers/chills, diaphoresis. HEENT: Denies headache or visual/hearing changes. Denies nasal discharge. NEURO: Denies unusual weakness or difficulty speaking. CARDIO: Denies chest pain, palpitations. PULM: Denies SOB, cough, wheezing. GI: Denies abdominal pain, no N/V, no C/D. Reports having BMs URO: Denies burning/itching/pain/urinary changes. 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 MSK/EXT/SKIN: Denies skeletal/muscle pain, changes in upper or lower extremities, itchiness, superficial skin chnages. PSYCH: Cooperative, pleasant mood & affect. The rest of the review of systems is otherwise negative. Objective/Exam Narrative Physical exam: Constitutional Alert, oriented x3 and comfortable HEENT Vision grossly intact. Patent nares. Trachea midline. B/L thyroid nodules L>R Respiratory Chest normal on inspection and clear to auscultation bilaterally. Cardiovascular S1 and S2 audible, RRR. No murmurs or carotid bruit. No gross JVD. RT sided chest wall pain. Abdominal Soft and non tender to palpation in all quadrants. BS + Genitourinary No bladder tenderness, no flank pain. Normal to palpation. Musculoskeletal Extremities tone within normal limits. No LE edema. Neurological CN II - XII grossly intact. Extremity motor and sensation grossly intact. Skin Warm, dry and intact. No apparent lesions. Psychiatric Patient has a good affect, is cooperative. Results Thyroid ultrasound : multiple nodules Left lobe largest nodule 5.2 cm,with smaller 0.4-1.3 cm nodules. Right thyroid lobe largest 4.1 cm, with smaller 0.5- 1.9 cm nodules. Assessment & Plan Diagnosis / Problem List (1) Thyroid nodule: Status: Acute Assessment & Plan: - Continues to have loss of appetite, > 8 pound weight loss in 2 months, night sweats and mild discomfort due to the left thyroid gland nodule. - >8 pound weight loss in 2 months, night sweats and mild discomfort due to the left thyroid gland nodule. 12/19 : TSH, free T4, CEA and thyroglobulin levels within normal limits 12/24 : Thyroid US remarkable for multiple nodules Left lobe largest nodule 5.2 cm,with smaller 0.4-1.3 cm nodules. Right thyroid lobe largest 4.1 cm, with smaller 0.5-1.9 cm nodules. Plan: - Referral for Endocrinology Dr Reina - Previously labs showed TSH and free T4 within normal limits. Patient may need FNA or radioactive uptake scan to further evaluate bilateral nodules (2) Hypercholesteremia: Status: Acute Assessment & Plan: Hx of high cholesterol 12/19 ; Lipid panel shows hypercholesterolemia Plan: Continue rosuvastatin 20 mg at bedtime Will repeat lipid panel in 6 months (3) White coat syndrome with hypertension: Status: Acute Assessment & Plan: Blood pressure was noted to be 193 systolic, but patient does have notable history of whitecoat hypertension. 12/19 : Blood pressure on this visit 182/78 ; Home record show BP within normal limits 01/02 : BP 166/74 Plan: - Encouraged to continue keeping blood pressure record at home - Will adoption counselor next visit on CORA/ARB addition for adequate control - Referral for Cardiology for cardiac work up (4) Right-sided chest wall pain: Status: Acute Assessment & Plan: She also complains of new right-sided chest wall pain, likely due to sleeping with improper posture. Plan: - PRN diclofenac ointment or gabapentin prescribed at for shingles on last visit - Referral for Cardiology for cardiac work up Plan - Follow-up scheduled in 2 weeks from now. - Requested to return the blood work: CBC - Requested imaging studies:Thyroid ultrasound and CT chest w/o con Orders: Referrals Cardiology R07.9 - Chest pain, unspecified Endocrinology E04.1 - Nontoxic single thyroid nodule, R63.4 - Abnormal weight loss Additional Assessment Mike Hughes MD Advanced Care Planning Advance care planning discussed with:: patient and child Physician Billing Established Patient Established Patient: E/M Level 2-CPT 47019 Office Procedures [facility] Level of Care Nursing/Assessment Patient Status: Established Patient Nursing Assessment/Reassessment: Medication Reconciliation, Update PMH in EMR and Vital Signs Coordination of Care: Complex Care and Chronic Disease 1-5, Consent,records o btained, informed consent, Education Simp Pt/Fam and Staff clarify orders Established Patient Charge Established Patient Point Assignment: 85 Established Patient Point Charge: EP Level 3 (80-115)
[2025-01-02 15:34] VITALS: BP 166/74; PULSE 91; RESP 17; TEMP 36.7; O2SAT 98; BMI 20.5
== END 2025-01-02 15:48 | disposition home or self-care (01) ==
LOC: HODAHC 15:00
PROVIDERS: Supervising Provider Internal Medicine; Visit Provider Student in an Organized Health Care Education/Training Program
DX: E04.2 Nontoxic multinodular goiter (principal); E78.00 Pure hypercholesterolemia, unspecified; I10 Essential (primary) hypertension; R07.89 Other chest pain; R63.4 Abnormal weight loss; Z68.20 Body mass index [BMI] 20.0-20.9, adult
CPT/HCPCS: 99213; G0463

== ENCOUNTER → 2025-02-13 | Outpatient (CLI) | payer BC, SELFPAY ==
[2025-02-13 10:27] LABS: Collection Type, Urine Clean Catch; Squamous Epithelial Cell,Urine 0 /hpf (0-5)
[2025-02-13 10:54] LABS: Basophils # (Auto) 0.0 Thou/mm3 (0.0-0.2); Basophils % (Auto) 1 % (0-2.5); Eosinophils # (Auto) 0.2 Thou/mm3 (0.0-0.5); Eosinophils % (Auto) 2 % (0-10); Hematocrit 35.2 % (36.0-46.0); Hemoglobin 12.1 g/dL (12.0-16.0); Immature Granulocytes Auto 0.02 Thou/mm3 (0.00-0.00); Lymphocytes # (Auto) 1.7 Thou/mm3 (1.0-4.8); Lymphocytes % (Auto) 22 % (10-50); Mean Corpuscular HGB Conc 34.4 g/dl (31.0-37.0); Mean Corpuscular Hemoglobin 31.4 pg (25.0-35.0); Mean Corpuscular Volume 91 fL (80-100); Monocytes # (Auto) 0.7 Thou/mm3 (0.0-0.8); Monocytes % (Auto) 9 % (0-12); Neutrophils # (Auto) 5.1 Thou/mm3 (1.8-7.7); Neutrophils % (Auto) 66 % (37-80); Nucleated Red Blood Cell # 0.00 Thou/mm3 (0.00-0.00); Nucleated Red Blood Cell % 0 /100 WBC (0); Platelet Count 420 Thou/mm3 (140-440); RDW Standard Deviation 47.2 fL (36.4-46.3); Red Blood Count 3.85 Miln/mm3 (4.00-5.20); White Blood Count 7.7 Thou/mm3 (3.6-11.0)
[2025-02-13 11:01] LABS: Bilirubin,Urine Negative (Negative); Blood,Urine Negative (Negative); Clarity,Urine Clear (Clear/Hazy); Color,Urine Lt-Yellow (Lt Yel-Yel); Culture Indicated,Urine Not Indicated; Glucose, Urine Negative (Negative); Ketones,Urine Negative (Negative); Leukocyte Esterase,Urine Negative (Negative); Nitrite,Urine Negative (Negative); PH,Urine 6.5 (5.0-7.0); Protein,Urine Negative (Neg - Trace); RBC,Urine 3 /hpf (0-3); Specific Gravity,Urine 1.013 (1.001-1.035); Urobilinogen,Urine Negative mg/dL (0.0-1.0); WBC,Urine < 1 /hpf (0-5)
[2025-02-13 11:08] LABS: Vitamin B12 716 pg/mL (211-911); Vitamin D 25 Hydroxy Total 51.8 ng/mL (7.3-40.2)
[2025-02-13 11:15] LABS: Alanine Aminotransferase 20 U/L (10-49); Albumin, Serum 4.6 gm/dL (3.4-4.8); Albumin/Globulin Ratio 1.9 (1.2-2.2); Alkaline Phosphatase 70 U/L (46-116); Anion Gap 10 (7-16); Aspartate Amino Transferase 17 U/L (0-34); BUN/Creatinine Ratio 17 Ratio (12-20); Bilirubin,Total 0.6 mg/dL (0.3-1.2); Blood Urea Nitrogen 12 mg/dL (9-23); Calcium 9.3 mg/dL (8.3-10.6); Calcium (Corrected) 9.3 mg/dL (8.5-10.1); Carbon Dioxide 27.0 mMol/L (20.0-31.0); Cardiac Risk Estimate 4.4 RATIO (3.7-5.6); Chloride 107 mMol/L (98-107); Cholesterol 286 mg/dL (132-200); Creatinine (Component) 0.7 mg/dL (0.6-1.3); Globulin 2.4 gm/dL (2.3-3.5); Glucose 98 mg/dL (74-106); HDL Cholesterol 65 mg/dL (40-60); LDL Cholesterol,Calculated 200 mg/dL (0-130); Osmolality,Calculated 286 (275-295); Potassium 4.3 mMol/L (3.4-5.1); Sodium 144 mMol/L (136-145); Total Protein 7.0 gm/dL (5.7-8.2); Triglycerides 103 mg/dL (30-150); eGFR > 60 See Note
== END | disposition home or self-care (01) ==
LOC: COPL 09:04
PROVIDERS: PCP Student in an Organized Health Care Education/Training Program; Referring Provider Nurse Practitioner; Visit Provider Nurse Practitioner
DX: Z00.00 Encounter for general adult medical examination without abnormal findings (principal)
CPT/HCPCS: 36415; 80053; 80061; 81001; 82306; 82607; 85025

== ENCOUNTER 2025-02-17 10:49 | Outpatient (AMB) | payer BC, SELFPAY ==
[2025-02-17 11:03] VITALS: BP 177/71; PULSE 80; RESP 18; TEMP 37; O2SAT 96; BMI 20.2
--- NOTE | 2025-02-17 11:03 | PD.RESCLINIC ---
Vital Signs 02/17/25 11:03 Height 1.6 m Height Method Stated Weight 51.71 kg Weight Measurement Method Standing Scale BMI 20.2 BP 177/71 H Blood Pressure Source Automatic Cuff Blood Pressure Location Right Upper Arm Position Sitting Respiration 18 Pulse 80 Pulse Source Monitor Temp 98.6 F Temp Source Temporal Artery Scan Pulse Oximetry (%) 96 Oxygen Delivery Method Room Air Allergies/Meds Allergies & Medications Allergies NUTS Allergy (Unknown, Uncoded 02/17/25 11:04) Medication Reconciliation estradiol 1 mg tablet (Estrace) 1 mg PO QDAY #0 tabs 01/13/14 [History Confirmed 02/17/25] alprazolam 0.25 mg tablet (Xanax) 0.25 mg PO QDAY PRN claustrophobia #10 tabs 09/04/24 [Rx Confirmed 02/17/25] carvedilol 6.25 mg tablet (Coreg) 6.25 mg PO BID #60 tabs 09/04/24 [Rx Confirmed 02/17/25] gabapentin 100 mg capsule 100 mg PO BID pain #14 caps 12/05/24 [Rx Confirmed 02/17/25] hydrocortisone 1 % topical cream 1 applic topical QID PRN itching #28.4 grams 12/05/24 [Rx Confirmed 02/17/25] diclofenac sodium 1 % topical gel (Arthritis Pain (diclofenac)) 2 g topical QID #50 grams 12/19/24 [Rx Confirmed 02/17/25] rosuvastatin 20 mg tablet 20 mg PO QDAY 1 month #30 tabs 12/19/24 [Rx Confirmed 02/17/25] valacyclovir 1 gram tablet 1,000 mg PO BID #30 tabs 12/19/24 [Rx Confirmed 02/17/25] MA Intake Visit Data Collection New Patient or Established: Established Patient (seen at [facility] within 3 years) Seen by Clinical Staff ONLY (RN/MA): No Pain Present Currently: No Pain scale:: 0 Pain Scale Used: CheryTammi/Numerical District Supervisor Required: No PCP or OBGYN visit in last 3 months: No Hx Now: No Do You Feel Safe at Home: Yes Authorities Contacted: N/A Smoking Status Smoking Status: Never smoker Immunization / Flu Flu Vaccine in the Last 12 Months: No Flu Vaccine Exclusion Criteria: No Exclusion Criteria Past Medical History Social History SMOKING STATUS: Smoking status: Never smoker Patient Portal Questionaires PHQ-9 PHQ-2 Over the last 2 weeks, how often have you been bothered by any of the following problems? 1. Little interest or pleasure in doing things: not at all PHQ-9 8. Moving or speaking so slowly that other people could have noticed? - Or the opposite - being so fidgety or restless that you have been moving around a lot more than usual: not at all Source: Developed by Drs. Johnny Yee, Pearl Herrmann, Houston Mao and colleagues, with an educational tyler from [employer]. Social History Tobacco History Smoking Status: Never smoker Domestic Abuse History Do You Feel Safe at Home: Yes Review of Systems Report any current symptoms Only answer those that you have currently: Past Medical History Past Medical History Have you ever been diagnosed with any of the following: History of Present Illness HPI Narrative Patient is a 71-year-old female with past medical history of hypertension is coming in for an evaluation of left shoulder pain with associated numbness tingling and possible finger discoloration. Patient has noticed over some time that she began to experience worsening shoulder pain with those associated symptoms mentioned above. She says that she was in [facility] recently and had a cardiac cath which was normal. The reason she had a cardiac cath was she was experiencing also chest pain that had occurred suddenly. She is a patient of Dr. Gomez who manages her blood pressure and had said that her arteries are good, however needed further workup for the arteries of her extremities. She did say that her blood pressure has been running high lately, it was measured 160 in the technical operations specialist office. She says her blood pressure is usually 120 systolic. She confirms about a 5 pound weight loss over the past month. She does endorse some fatigue as well. She denies having any chest pain, palpitations or shortness of breath at this time. She denies any trauma to her left shoulder or neck. She denies any family history of rheumatological disease. She denies having any syncope. She also says that she was going to travel via plane to get chiropractic work. She is also requesting some medicine for some history of claustrophobia with traveling. No other complaints at this time. 12/05/2024 : Patient presented for follow-up visit. She continues to have loss of appetite, > 8 pound weight loss in 2 months, night sweats and mild discomfort due to the left thyroid gland nodule. Patient also complains of developing a vesicular rash behind her ear 1 week ago. She has had shingles in the past on the right side of her abdomen which was treated with antiviral therapy. She refuses Shingrix vaccination at this time. Daughter was present at bedside, and showed a picture of the vesicles from 1 week ago which have now resolved to a dry erythematous and excoriated lesion behind the ear. Patient endorses severe pain 9/10 in her mastoid region and left temporal region of the head. As per daughter at bedside, patient lives alone and has not been maintaining her lawn) less around the house due to significant fatigue. As per daughter patient has been coughing yellow-green mucus intermittently for the last 8 weeks, she has also noted loss of energy and appetite, with some depressive symptoms over the last 2-3 months. Blood pressure was noted to be 193 systolic, but patient does have notable history of whitecoat hypertension. She was given lab work from for CBC, CMP, lipid panel, TSH and free T4, CEA and thyroglobulin. Thyroid ultrasound and CT chest ordered for further evaluation. Will follow-up with iodine scan and oncology referral as needed. 12/19/2024 : Patient presented for follow up. On labs elevated cholesterol noted, will start patient on Rosuvastatin 20mg HS. Other lab findings fairly within normal limits. Patient continues to have elevated blood pressure in clinic, endorses a 2 whitecoat hypertension. Patient was unable to get CBC on her last lab work, will request a new sample for next visit in 2 weeks. She is scheduled for a thyroid ultrasound in the next week, and will call make an appointment for CT chest. She did request faxed already. TSH and free T4 within normal limits, pending ultrasound results for cold nodule workup. Counseled on possible need for radioactive uptake scan. She also complains of new right-sided chest wall pain, likely due to sleeping with improper posture. Will order diclofenac ointment for the same. Patient also requested extra valacyclovir tablets for recurrence of shingles. Next follow-up appointment in 2 weeks on January 02. 01/02/2025 : Seen in [facility] for thyroid ultrasound follow up, US remarkable for multiple nodules Left lobe largest nodule 5.2 cm,with smaller 0.4-1.3 cm nodules. Right thyroid lobe largest 4.1 cm, with smaller 0.5-1.9 cm nodules. Previously labs showed TSH and free T4 within normal limits. Referral provided for mileage clerk Dr. Reina in [place]. Patient advised to make an appointment at the earliest, will fax results if unable to access online. Patient may need FNA or radioactive uptake scan to further evaluate bilateral nodules and recent weight loss. 02/17/2025 : Presented for follow up. Patient was unable to see [employer] [facility] Dr Reina in [place] as paperwork was not sent in time. STAT request to specialist referral placed again. Will print out recent CBC, CMP and previous thyroid labs, along with thyroid US for patient's record. Patient has an appt to see Dr Reina's MIRROR POLISHER [place] on Apr 03. Will request Dr Reina to accommodate patient at an earlier date. Previous lab work shows TSH, thyroid panel abut no fre3e T4. Lab errror noted, free T3 performed instead for some reason. Review of Systems Review of Systems Narrative Review of Systems: GENERAL: Denies fevers/chills, diaphoresis. HEENT: Denies headache or visual/hearing changes. Denies nasal discharge. NEURO: Denies unusual weakness or difficulty speaking. CARDIO: Denies chest pain, palpitations. PULM: Denies SOB, cough, wheezing. GI: Denies abdominal pain, no N/V, no C/D. Reports having BMs URO: Denies burning/itching/pain/urinary changes. KEYBOARD ACTION ASSEMBLER: Denies menstrual changes, hot flashes. MSK/EXT/SKIN: Denies skeletal/muscle pain, changes in upper or lower extremities, itchiness, superficial skin chnages. PSYCH: Cooperative, pleasant mood & affect. The rest of the review of systems is otherwise negative. Objective/Exam Narrative Physical exam: Constitutional Alert, oriented x3 and comfortable HEENT Vision grossly intact. Patent nares. Trachea midline. B/L thyroid nodules L>R Respiratory Chest normal on inspection and clear to auscultation bilaterally. Cardiovascular S1 and S2 audible, RRR. No murmurs or carotid bruit. No gross JVD. Abdominal Soft and non tender to palpation in all quadrants. BS + Genitourinary No bladder tenderness, no flank pain. Normal to palpation. Musculoskeletal Extremities tone within normal limits. No LE edema. Neurological CN II - XII grossly intact. Extremity motor and sensation grossly intact. Skin Warm, dry and intact. No apparent lesions. Psychiatric Patient has a good affect, is cooperative. Results CBC - within normal limits CMP - within normal limits Lipid panel - improved with statin therapy Assessment & Plan Diagnosis / Problem List (1) Thyroid nodule, cold: Status: Acute Assessment & Plan: - Continues to have loss of appetite, > 8 pound weight loss in 2 months, night sweats and mild discomfort due to the left thyroid gland nodule. - >8 pound weight loss in 2 months, night sweats and mild discomfort due to the left thyroid gland nodule. 12/19 : TSH, free T4, CEA and thyroglobulin levels within normal limits 12/24 : Thyroid US remarkable for multiple nodules Left lobe largest nodule 5.2 cm,with smaller 0.4-1.3 cm nodules. Right thyroid lobe largest 4.1 cm, with smaller 0.5-1.9 cm nodules. 02/17 : Previous lab work shows TSH, thyroid panel abut no fre3e T4. Lab errror noted, free T3 performed instead for some reason. Plan: - Referral for Endocrinology Dr Reina changed to STAT - Print of lab work provided - Repeat TSH , Free T4 and TPO abs ordered - Patient may need FNA or radioactive uptake scan to further evaluate bilateral nodules (2) Hypercholesteremia: Status: Acute Assessment & Plan: Hx of high cholesterol 12/19 ; Lipid panel shows hypercholesterolemia 02/17: Lipid panel improved on statin therapy Plan: Continue rosuvastatin 20 mg at bedtime Will repeat lipid panel in 6 months (3) White coat syndrome with hypertension: Status: Acute Assessment & Plan: Blood pressure was noted to be 193 systolic, but patient does have notable history of whitecoat hypertension. 12/19 : Blood pressure on this visit 182/78 ; Home record show BP within normal limits 01/02 : BP 166/74 02/17: BP high in clinic but home record shows 120/70s Plan: - Encouraged to continue keeping blood pressure record at home - Continue Carvedilol + Losartan - Referral for Cardiology for cardiac work up Plan - Follow-up scheduled in 2 weeks from now. - Requested to return the blood work: CBC - Requested imaging studies:Thyroid ultrasound and CT chest w/o con Orders: Orders Thyroid Stimulating Hormone 2 Weeks E04.1 - Nontoxic single thyroid nodule Free T4 (Free Thyroxine) 2 Weeks E04.1 - Nontoxic single thyroid nodule Thyroid Peroxidase Antibodies* 2 Weeks E04.1 - Nontoxic single thyroid nodule Additional Assessment Attending note: I, Mike Hughes MD, attest that I was physically present for the moore portions of the service and evaluated the patient with the resident and I reviewed and discussed the case with the resident and agree with the resident's findings and plans of care as documented above. Mike Hughes MD Advanced Care Planning Advance care planning discussed with:: patient and child Office Procedures [facility] Level of Care Nursing/Assessment Patient Status: Established Patient Nursing Assessment/Reassessment: Medication Reconciliation, Update PMH in EMR and Vital Signs Coordination of Care: Complex Care and Chronic Disease 1-5, Consent,records obtained, informed consent, Education Simp Pt/Fam, Lab and Imaging orders and Staff clarify orders Established Patient Charge Established Patient Point Assignment: 100 Established Patient Point Charge: EP Level 3 (80-115)
== END 2025-02-17 11:59 | disposition home or self-care (01) ==
LOC: HODAHC 10:49
PROVIDERS: PCP Student in an Organized Health Care Education/Training Program; Referring Provider Student in an Organized Health Care Education/Training Program; Supervising Provider Internal Medicine; Visit Provider Student in an Organized Health Care Education/Training Program
DX: E04.1 Nontoxic single thyroid nodule (principal); E78.00 Pure hypercholesterolemia, unspecified; I10 Essential (primary) hypertension
CPT/HCPCS: 99213; G0463

== ENCOUNTER → 2025-02-17 | Outpatient (CLI) | payer MEDICARE, SELFPAY ==
[2025-02-17 14:14] LABS: Free T4 (Free Thyroxine) 1.32 ng/dL (0.89-1.76); Thyroid Stimulating Hormone 0.81 uIU/mL (0.55-4.78)
[2025-02-23 07:44] LABS: Thyroid Peroxidase Antibodies* <1 IU/mL (<9)
== END | disposition home or self-care (01) ==
LOC: COPL 12:26
PROVIDERS: PCP Student in an Organized Health Care Education/Training Program; Referring Provider Student in an Organized Health Care Education/Training Program; Visit Provider Student in an Organized Health Care Education/Training Program
DX: E04.1 Nontoxic single thyroid nodule (principal)
CPT/HCPCS: 36415; 84439; 84443; 86376